=== PATIENT | male | born 1955 | race Caucasian/White ===

== ENCOUNTER 2023-08-16 09:24 | Outpatient (OUT) | payer MEDICARE, SELFPAY ==
[2023-08-17 04:07] LABS: Testosterone 394 ng/dL (264-916)
== END 2023-08-16 09:25 | disposition home or self-care (01) ==
PROVIDERS: PCP Internal Medicine; Visit Provider Urology
DX: E29.1 Testicular hypofunction (principal)
CPT/HCPCS: 36415; 84403